=== PATIENT | female | born 1975 | race Caucasian/White ===

== ENCOUNTER 2018-02-27 14:49 | Outpatient (CLI) | payer OTHER ==
[~2018-02-27 14:49] MED LIST: MULT-709 PO
== END 2018-03-06 09:18 | disposition home or self-care (01) ==
LOC: CFH 14:49
PROVIDERS: ATTEND Genetic Counselor, MS
DX: Z12.31 Encounter for screening mammogram for malignant neoplasm of breast (principal)
CPT/HCPCS: 77063; 77067

== ENCOUNTER 2019-03-04 14:26 | Outpatient (CLI) | END 2019-03-04 23:59 | disposition home or self-care (01) | LOC: CFH 14:26 | PROVIDERS: ATTEND Genetic Counselor, MS | DX: Z12.31 Encounter for screening mammogram for malignant neoplasm of breast (principal) | CPT/HCPCS: 77063; 77067 ==